=== PATIENT | female | born 1975 | race Caucasian/White ===

== ENCOUNTER 2021-11-22 12:57 | Outpatient (CLI) | payer BC | END 2021-11-22 12:58 | disposition home or self-care (01) | LOC: BICMAMMO 12:57 | PROVIDERS: ATTEND Internal Medicine | DX: R92.8 Other abnormal and inconclusive findings on diagnostic imaging of breast (principal) | CPT/HCPCS: G0279 ==

== ENCOUNTER 2022-11-05 18:00 | Outpatient (CLI) | payer BC | END 2022-11-05 18:01 | disposition home or self-care (01) | LOC: SLEEPLAB 18:00 | PROVIDERS: ATTEND Internal Medicine | DX: G47.33 Obstructive sleep apnea (adult) (pediatric) (principal); R53.83 Other fatigue | CPT/HCPCS: 95800 ==